=== PATIENT | male | born 1960 | race Caucasian/White ===

== ENCOUNTER → 2023-09-18 08:51 | Outpatient (REF) | payer BC, SELFPAY | LOC: HWRCS 08:51 | PROVIDERS: ATTENDING PHYSICIAN Family Medicine | DX: R53.82 Chronic fatigue, unspecified (principal); H83.02 Labyrinthitis, left ear; R01.1 Cardiac murmur, unspecified; E53.8 Deficiency of other specified B group vitamins | CPT/HCPCS: 93306 ==

== ENCOUNTER 2024-01-09 16:44 | Emergency (ER) | payer BC, SELFPAY ==
[2024-01-09 16:45] VITALS: BMI 27.8
[2024-01-09 16:46] VITALS: BP 166/83
[2024-01-09 17:42] LABS: % Basophils 1.1 % (0-2); % Eosinophils 2.8 % (0-6); % Immature Granulocytes 0.3 % (0-0.5); % Lymphocytes 21.2 % (20.5-51.1); % Monocytes 9.2 % (1.7-9.3); % Neutrophils 65.4 % (42.2-75.2); Absolute Basophils 0.1 10^3/uL (0-0.2); Absolute Eosinophils 0.2 10^3/uL (0-0.7); Absolute Lymphocytes 1.7 10^3/uL (1.2-3.4); Absolute Monocytes 0.7 10^3/uL (0.1-0.6); Absolute Neutrophils 5.1 10^3/uL (1.4-6.5); Hematocrit 41.4 % (39.0-52.0); Hemoglobin 14.3 g/dL (13.0-18.0); Mean Corp Hgb Conc. 34.5 g/dL (33.0-37.0); Mean Corpuscular Hgb 29.4 pg (27.0-31.0); Mean Platelet Volume 10.3 fL (7.4-10.4); Nucleated Red Blood Cells % 0 % (-); Platelet Count 213 10^3/uL (130-400); Red Blood Cell Count 4.87 10^6/uL (4.70-6.10); Red Cell Dist. Width 13.1 % (11.5-14.5); White Blood Cell Count 7.9 10^3/uL (4.8-10.8)
--- NOTE | 2024-01-09 17:42 | ED.GENMED ---
History of Present Illness
General
Chief Complaint: Flank Pain
Source: patient and family (Daughter)
Exam Limitations: none
Time Seen by Provider: 01/09/24 17:05
Nursing documentation reviewed up to this point in time: agreed with
Travel History
Have you had any contact with someone who has COVID-19?: No
Do you have any symptoms of coronavirus? Fever > 100 degrees, chills, cough, shortness of breath, sore throat, loss of taste or smell, muscle aches, or headache?: No
History of Present Illness
History of Present Illness:
63-year-old male with a past medical history of BPH and diverticulitis status post partial colon resection who presents to the emergency room with his daughter for evaluation of right abdominal/flank pain and hematuria. Patient reports that for the
past 3 days he has had some dark urine/blood in his urine. He says that today he had rather abrupt onset of right mid abdominal pain radiating to the right flank. He says that this was very intense and woke him up from a nap. He says that it
lasted for about 25 minutes and then seem to go away and so he went about his normal activities thereafter. He says within 30 minutes he had return of severe pain and so his daughter urged him to go to the emergency room. He says that his pain has
abated for now he is currently only having some very mild aching in the right abdomen/flank. He did not have any associated nausea or vomiting. Has not had any change in his bowel movements�denies diarrhea or constipation. Although he has had
some hematuria he denies any dysuria or change in frequency and he has not had any difficulty urinating. He says he has not had any fevers or chills. He denies similar symptoms in the past. Only surgical history is a partial colon resection
secondary to diverticulitis in 2011.
Past History
Past History
ED Past Medical History: Other (BPH); Negative Asthma, HTN, Hypercholesterolemia or NIDDM
ED Past Surgical History: Bowel resection (For diverticulitis) and Orthopedic (Joint replaced Left great toe)
Social History
Tobacco: Non-smoker
Alcohol: None
Personal:
Living: with family
Review of Systems
Review of Systems
All Other Systems: ROS reviewed and negative except as documented in HPI and ROS
Constitutional: Denies fever or chills
Respiratory: Denies cough or trouble breathing
Cardiac: Denies chest pain or palpitations
ABD/GI: Reports abdominal pain; Denies nausea, vomiting, diarrhea or constipated
: Reports flank pain, bleeding and dark urine; Denies dysuria or frequency
Musculoskeletal: Denies neck pain or back pain
Neurological: Denies dizzy or headache
Phy Exam
Physical Exam
Physical Exam:
General: Awake, alert, oriented x3; no acute distress
Head: Normocephalic, atraumatic
Eyes: Conjunctiva normal, sclera anicteric
Throat: Airway intact, handling secretions, moist mucous membranes
Neck: Trachea midline, supple without meningismus
Lungs: Breathing comfortably no distress
Heart: Regular rate, extremities warm well-perfused with brisk capillary refill
Abd: Soft, non distended, mildly tender in the right mid abdomen with no peritoneal signs or masses
Back: No CVA tenderness
Neuro: No gross deficits
Skin: no rash
Extremities: Atraumatic, no edema
Scores
Heart Failure Risk
Heart Failure Risk Score: Not Applicable
Heart Score for Chest Pain Patients
STEMI patient?: Not applicable
Withdrawal Assessment of Alcohol
Withdrawal Assessment Completed?: Not applicable
Course
Orders/Labs/Results
Orders:
Orders
01/09/24 17:25
CT Abd/pel Without Iv Or Oral Urgent
Comment:
Reason For Exam: R flank pain
01/09/24 17:33
Complete Blood Count/With Diff Urgent
Comprehensive Metabolic Panel Urgent
Urinalysis Reflex To Culture Urgent
Date Specimen was Collected: 01/09/24
Time Specimen was Collected: 17:28
Urine Microscopic Reflex Cult Urgent
Urine Culture Urgent
TASHA Source: U
Specimen Description:
Date Specimen was Collected: 01/09/24
Time Specimen was Collected: 17:28
01/09/24 17:47
0.9% Sodium Chloride 500 ml [Nss] 500 ml IV BOLUS
Abnormal Lab Results
01/09/24
17:33
Absolute Monos (auto) 0.7 H 10^3/uL
(0.1-0.6)
Chloride 109 H mmol/L
(98-107)
Urine Ketones Trace A
(Negative)
Ur Occult Blood Reflex 4+ A
(Negative)
Urine Bilirubin 1+ A
(Negative)
Leukocyte Esterase Rfl Trace A
(Negative)
Urine RBC >100 A /HPF
(0-2)
Urine Bacteria (Reflex) Many A
(Negative)
Urine Albumin (Reflex) 1+ A
(Neg - Trace)
01/09/24 17:33
01/09/24 17:33
Vital Signs
Initial and Last Documented VS:
Initial Vital Signs
Temp Pulse Resp BP Pulse Ox
36.7 C 68 18 166/83 96
01/09/24 16:46 01/09/24 16:46 01/09/24 16:46 01/09/24 16:46 01/09/24 16:46
Last Documented Vital Signs
Temp Pulse Resp BP Pulse Ox
36.7 C 71 16 141/81 97
01/09/24 16:46 01/09/24 20:24 01/09/24 20:24 01/09/24 20:24 01/09/24 20:24
MDM/Problems Addressed
Differential Diagnosis Includes:
Nephrolithiasis, diverticulitis, appendicitis, UTI/pyelonephritis, hepatobiliary disease
MDM/Problems Addressed:
63-year-old male presents to the emergency room for evaluation of hematuria for the past few days now having acute onset waxing and waning severe right abdominal/flank pain. Hypertensive but otherwise normal vitals. Physical exam as above. Place
an IV check labs including a CBC and a CMP. Will check urinalysis. Will send for CT abdomen pelvis. Will provide some gentle fluids and pain control as needed. Reassess after the above.
Labs reviewed: CBC unremarkable, CMP shows no clinically significant abnormalities�notably normal creatinine. CT shows 6 mm obstructive stone with mild hydronephrosis on the right. His urinalysis is positive for blood and there are some bacteria
in the urine but no pyuria to suggest infection and he has no leukocytosis or fever to suggest infection. He has no pain at time my reassessment. I think he is a reasonable candidate for discharge for trial of passage. Will start on Flomax,
advised to take Tylenol Motrin will prescribe oxycodone for breakthrough pain. I did provide referral to urology. Provided strainer. I spoke to the patient at length about management and return precautions and he felt very comfortable with this
plan. All questions answered.
Acute Exacerbation and/or Progression of Chronic Illness:
Acutely hypertensive
Acute Exacerbation and/or Progression of Chronic Illness: HTN
*Radiology
Radiology exam reviewed: radiology read reviewed
*Pulse Oximetry
Patient hypoxic: no
*Critical Care Note
Total Time (30-74mins, 75-104mins- exclusive of procedures): Not Applicable
Data Reviewed
Review of Other/Old Records Reveals: Labs and Records
Source: patient and family (Daughter)
ED Attending Note
-
Portions of this chart may have been created with voice recognition software.� Occasional wrong word or��sound alike� substitutions may have occurred due to the inherent limitations of voice recognition software.
Discharge Plan
Departure
Patient Disposition: Home (Routine Discharge)
Date of Disposition: 01/09/24
Time of Disposition: 20:07
Patient with high blood pressure during this ER visit?: Yes
Discharge Problem:
Right nephrolithiasis
Instructions: Kidney Stones (DC)
Prescriptions:
New
oxycodone 5 mg tablet
5 mg PO Q6H PRN (Reason: Pain) Qty: 14 0RF
tamsulosin [Flomax] 0.4 mg capsule
0.4 mg PO DAILY Qty: 14 0RF
ondansetron 4 mg tablet,disintegrating
4 mg PO TIDPRN PRN (Reason: nausea/vomiting) Qty: 20 0RF
No Action
cyanocobalamin (vitamin B-12) 1,000 mcg Tablet
1,000 mcg PO DAILY Qty: 30 0RF
acetaminophen [Tylenol Extra Strength] 500 mg Tablet
1,000 mg PO DAILYPRN PRN (Reason: mild pain)
magnesium oxide 400 mg (241.3 mg magnesium) Tablet
400 mg PO DAILY
escitalopram oxalate 20 mg Tablet
20 mg PO DAILY
topiramate 50 mg Tablet
25 mg PO HS
Visbiome 112.5 billion cell Capsule
1 cap PO DAILY
riboflavin (vitamin B2) 400 mg Tablet
400 mg PO DAILY
Referrals:
Ebenezer Bill MD [Family Provider] -
Tunde Miller Jr., MD [Active] - Call in 1-3 days for appt (Urology)
Activity Restrictions/Additional Instructions:
You were seen in the emergency room for flank pain and was found to have a kidney stone. You should take Flomax once daily until you passed the stone to help facilitate passage. You should drink plenty of fluids. You should take Tylenol and
Motrin every 6 hours for pain control and if you have pain that breaks through these medications you can take the oxycodone as prescribed. If you have severe pain refractory to these measures you should return to the emergency room. You should
call the urologist first thing tomorrow to schedule follow-up with soon as possible after your visit to the emergency room. If you are having persistent symptoms they can guide you through procedures to remove the stone. If you develop any fevers
or chills or any signs of infection please immediately return to the emergency room.
Thank you for visiting the Emergency Department at [facility].
1. Please schedule a follow up appointment as directed. Call first thing tomorrow morning to make an appointment.
2. If indicated, please take your medications as instructed and indicated on discharge paperwork.
3. If any of your symptoms do not improve, or persist, or become more severe within 6-12 hours, please return to the emergency department for further care.
4. Please return to the emergency department if you develop a headache, neck pain/stiffness, fever greater than 100.4F, chest pain, shortness of breath, persistent nausea, vomiting, slurred speech, difficulty walking, numbness/tingling, weakness,
signs of infection or any other symptoms that are worrisome to you.
Please call [phone] if you have any questions.
Interventions
Interventions:
*Risk Screen - Suicide Last Done: 01/09/24 20:26
*General Assessment Last Done: 01/09/24 20:26
*Neglect/Abuse Screening Last Done: 01/09/24 20:26
ED- Fall Risk Assessment Last Done: 01/09/24 18:53
*ED COVID-19 Vaccine History Last Done: 01/09/24 20:26
*Nursing Disposition Last Done: 01/09/24 20:26
MU-Sdutav-Lnceksfnoo Assessment Last Done: 01/09/24 18:53
ED-Male Genitourinary Assessment Last Done: 01/09/24 18:53
Discharge Date and Time
Discharge Date/Time: 01/09/24 20:26
Print Language: MONEGASQUE
[2024-01-09 17:44] LABS: Urine Albumin 1+ (Neg - Trace); Urine Bilirubin 1+ (Negative); Urine Character Very Cloudy (Clear); Urine Color Amber; Urine Glucose Negative (Negative); Urine Ketone Trace (Negative); Urine Leukocyte Trace (Negative); Urine Nitrite Negative (Negative); Urine Occult Blood 4+ (Negative); Urine Urobilinogen Negative (Neg - 1+)
[2024-01-09 18:02] LABS: ALT (SGPT) 20 U/L (0-50); AST (SGOT) 21 U/L (17-59); Albumin 4.3 g/dl (3.5-5.0); Alkaline Phosphatase 62 U/L (38-126); Blood Urea Nitrogen 19 mg/dl (9-20); Calcium 9.3 mg/dl (8.4-10.2); Carbon Dioxide 25 mmol/L (22-30); Chloride 109 mmol/L (98-107); Glucose 99 mg/dl (70-99); Potassium 3.8 mmol/L (3.5-5.1); Sodium 140 mmol/L (135-145); Total Bilirubin 0.9 mg/dl (0.2-1.3); Total Protein 6.7 g/dl (6.3-8.2); eGFR > 60.00
[2024-01-09] MEDS: NSS 500 IV (18:04)
[2024-01-09 18:12] LABS: Urine Bacteria Many (Negative); Urine Red Blood Cell >100 /HPF (0-2); Urine White Cell 0-2 /HPF (0-5)
[2024-01-09 20:24] VITALS: BP 141/81
== END 2024-01-09 20:26 | disposition home or self-care (01) ==
LOC: EMR 16:44
PROVIDERS: EMERGENCY PHYSICIAN Emergency Medicine; FAMILY PHYSICIAN Family Medicine
DX: N13.2 Hydronephrosis with renal and ureteral calculous obstruction (principal); N40.0 Benign prostatic hyperplasia without lower urinary tract symptoms; K57.92 Diverticulitis of intestine, part unspecified, without perforation or abscess without bleeding; Z98.0 Intestinal bypass and anastomosis status
CPT/HCPCS: 99284; 74176; 80053; 81003; 81015; 85025; 87086

== ENCOUNTER 2024-02-11 20:30 | Emergency (ER) | payer BC, SELFPAY ==
[2024-02-11 20:30] VITALS: BMI 28.5
[2024-02-11 20:31] VITALS: BP 168/108
[2024-02-11 20:56] LABS: % Basophils 0.9 % (0-2); % Eosinophils 4.2 % (0-6); % Immature Granulocytes 0.3 % (0-0.5); % Lymphocytes 32.2 % (20.5-51.1); % Monocytes 8.1 % (1.7-9.3); % Neutrophils 54.3 % (42.2-75.2); Absolute Basophils 0.1 10^3/uL (0-0.2); Absolute Eosinophils 0.3 10^3/uL (0-0.7); Absolute Lymphocytes 2.5 10^3/uL (1.2-3.4); Absolute Monocytes 0.6 10^3/uL (0.1-0.6); Absolute Neutrophils 4.2 10^3/uL (1.4-6.5); Hematocrit 41.1 % (39.0-52.0); Hemoglobin 14.4 g/dL (13.0-18.0); Mean Corpuscular Hgb 29.6 pg (27.0-31.0); Mean Corpuscular Volume 84.6 fL (80.0-94.0); Mean Platelet Volume 10.4 fL (7.4-10.4); Nucleated Red Blood Cells % 0 % (-); Platelet Count 247 10^3/uL (130-400); Red Blood Cell Count 4.86 10^6/uL (4.70-6.10); White Blood Cell Count 7.7 10^3/uL (4.8-10.8)
--- NOTE | 2024-02-11 20:56 | ED.GENMED ---
History of Present Illness
General
Chief Complaint: Flank Pain
Source: patient, spouse and family
Exam Limitations: none
Time Seen by Provider: 02/11/24 20:49
Nursing documentation reviewed up to this point in time: agreed with
History of Present Illness
History of Present Illness:
63 yo male w h/o kidney stones, has a known 6 mm R ureteral stone seen on CT in December, followed by Dr. Miller, Urology, wanted to give it 2 weeks to pass, didn't pass, saw Dr. Miller [address] ordered for this coming (2 days) but
pain became worse so came here. Is nauseated, pain 05/07. Denies fever/chills.
Past History
Past History
ED Past Medical History: Other (BPH, kidney stones); Negative Asthma, HTN, Hypercholesterolemia or NIDDM
ED Past Surgical History: Bowel resection (For diverticulitis), Orthopedic (Joint replaced Left great toe) and Urological (prostate surgery)
Social History
Tobacco: Non-smoker
Alcohol: None
Personal:
Living: with family
Review of Systems
Review of Systems
Allergies reviewed?: Yes
All Other Systems: ROS reviewed and negative except as documented in HPI and ROS
Constitutional: Denies fever or chills
Respiratory: Denies trouble breathing
Cardiac: Denies chest pain
ABD/GI: Reports nausea; Denies vomiting
: Reports flank pain (right) and difficulty voiding (states he only voided once today. ); Denies dysuria
Musculoskeletal: Reports no symptoms
Skin: Reports no symptoms
Neurological: Reports no symptoms
Phy Exam
Physical Exam
Physical Exam:
GENERAL: Moderate acute distress due to flank pain. A&Ox3.
CONSTITUTIONAL: Afebrile.
EYES: clear, conjunctivae normal
ENMT: moist mucus membranes, Pharynx nl
RESPIRATORY: Regular respirations, nonlabored, lungs clear.
CARDIOVASCULAR: Regular rate and rhythm, no murmurs, no rubs.
GI: Soft, nontender, normal BS, right flank and side tenderness
MUSCULOSKELETAL: Moves with ease. Well perfused.
SKIN: Warm, dry, pink
PSYCH: Anxioud mood and affect. Well kept, interactive and appropriate
NEUROLOGIC: Awake, alert and oriented. No focal neurological deficits
Course
Orders/Labs/Results
Orders:
Orders
02/11/24 20:50
IV Insert/Care/Rem.- Treatment PRN
02/11/24 20:52
Complete Blood Count/With Diff Urgent
Comprehensive Metabolic Panel Urgent
Urinalysis Reflex To Culture Urgent
Date Specimen was Collected: 02/11/24
Time Specimen was Collected: 20:50
Urine Microscopic Reflex Cult Urgent
02/11/24 20:53
HYDROmorphone [Dilaudid] 1 mg IV NOW STA
Ondansetron Injectable [Zofran] 4 mg IV NOW STA
02/11/24 20:54
Electrocardiogram (*1) Urgent
Reason for Study: QTc Monitoring
EKG- Treatment ONCE
02/11/24 20:55
CT Abd/pel Without Iv Or Oral Urgent
Comment:
Reason For Exam: known R ureteral stone, pain now
02/11/24 20:59
Ketorolac [Toradol] 15 mg IV NOW STA
02/11/24 22:48
Ketorolac [Toradol] 15 mg IV NOW STA
Abnormal Lab Results
02/11/24
20:52
BUN 21 H mg/dl
(9-20)
Creatinine 1.5 H mg/dL
(0.7-1.3)
Glucose 100 H mg/dl
(70-99)
Ur Occult Blood Reflex 4+ A
(Negative)
Urine RBC 30-40 A /HPF
(0-2)
Urine Bacteria (Reflex) Few A
(Negative)
02/11/24 20:52
02/11/24 20:52
Vital Signs
Initial and Last Documented VS:
Initial Vital Signs
Temp Pulse Resp BP Pulse Ox
98.7 F 70 26 168/108 98
02/11/24 20:31 02/11/24 20:31 02/11/24 20:31 02/11/24 20:31 02/11/24 20:31
Last Documented Vital Signs
Temp Pulse Resp BP Pulse Ox
98.7 F 71 20 131/71 98
02/11/24 20:31 02/11/24 22:59 02/11/24 22:59 02/11/24 22:59 02/11/24 22:59
MDM/Problems Addressed
Differential Diagnosis Includes:
Ureteral stone, UTI
MDM/Problems Addressed:
63 yo male w h/o kidney stones, has a known 6 mm R ureteral stone seen on CT in December, followed by Dr. Miller, Urology, wanted to give it 2 weeks to pass, didn't pass, saw Dr. Miller [address] ordered for this coming (2 days) but
pain became worse so came here. Is nauseated, pain 10/10. Denies fever/chills.
Afebrile
Uncomfortable with 10/[address] Tillman in to see pt. Daughter at bedside used to work as RN here.
Requests no Dilaudid as 'he vomited all the way home' after previous use for fx ribs.
Requests Toradol
10:26 PM:
CBC unremarkable
CMP: Creat 1.5 otherwise normal.
CAT scan abdomen pelvis radiology report reviewed: IMPRESSION:
Persistent 6 mm proximal right ureteral calculus. Slightly increased mild hydroureteronephrosis and perinephric soft tissue stranding.
Consulted Urology Dr. Reed who offered to admit pt, but probably won't be operated until or Saturday.
Pt and family informed, pt choses to go home, will return if worse. Will call Dr. Miller tomorrow.
Pt is pain free after IV Toradol
Afebrile, no sign of pyelonephritis, sepsis, no indication for antibiotics at this time.
Pt and family are comfortable going home, will return if worse
*EKG
EKG Intrepretation Date: 02/11/24
Interpretation: abnormal
Heart Rate: 64
Rate: normal
Rhythm: sinus
[place]: left axis deviation
Interval: normal interval
QRS Pattern: wide non-specific
Ischemia: no ischemia
*Critical Care Note
Total Time (30-74mins, 75-104mins- exclusive of procedures): Not Applicable
ED Attending Note
-
Portions of this chart may have been created with voice recognition software.� Occasional wrong word or��sound alike� substitutions may have occurred due to the inherent limitations of voice recognition software.
Discharge Plan
Departure
Patient Disposition: Home (Routine Discharge)
Date of Disposition: 02/11/24
Time of Disposition: 22:47
Patient with high blood pressure during this ER visit?: No
Condition: Good
Discharge Problem:
Calculus of right ureter
Instructions: Kidney Stones (DC)
Prescriptions:
No Action
cyanocobalamin (vitamin B-12) 1,000 mcg Tablet
1,000 mcg PO DAILY Qty: 30 0RF
acetaminophen [Tylenol Extra Strength] 500 mg Tablet
1,000 mg PO DAILYPRN PRN (Reason: mild pain)
magnesium oxide 400 mg (241.3 mg magnesium) Tablet
400 mg PO DAILY
escitalopram oxalate 20 mg Tablet
20 mg PO DAILY
topiramate 50 mg Tablet
25 mg PO HS
Visbiome 112.5 billion cell Capsule
1 cap PO DAILY
riboflavin (vitamin B2) 400 mg Tablet
400 mg PO DAILY
oxycodone 5 mg tablet
5 mg PO Q6H PRN (Reason: Pain) Qty: 14 0RF
tamsulosin [Flomax] 0.4 mg capsule
0.4 mg PO DAILY Qty: 14 0RF
ondansetron 4 mg tablet,disintegrating
4 mg PO TIDPRN PRN (Reason: nausea/vomiting) Qty: 20 0RF
Referrals:
Ebenezer Bill MD [Family Provider] -
Tunde Miller Jr., MD [Active] - Tomorrow
Activity Restrictions/Additional Instructions:
As we discussed, you may take another dose of Ibuprofen 600 mg at 5 a.m. if needed
Call Dr. Miller tomorrow at 8-[address] Reed will also inform him of today's visit.
Return here IMMEDIATELY for worse pain, fever/chills or feeling sicker in any way
Interventions
Interventions:
*Risk Screen - Suicide Last Done: 02/11/24 20:31
*General Assessment Last Done: 02/11/24 22:59
*Neglect/Abuse Screening Last Done: 02/11/24 20:31
ED- Fall Risk Assessment Last Done: 02/11/24 21:16
*ED COVID-19 Vaccine History Last Done: 02/11/24 22:59
*Nursing Disposition Last Done: 02/11/24 22:59
UD-Vsynna-Ckjrhnkxeh Assessment Last Done: 02/11/24 21:16
ED-Male Genitourinary Assessment Last Done: 02/11/24 21:16
Discharge Date and Time
Discharge Date/Time: 02/11/24 23:06
Print Language: BELARUSIAN
[2024-02-11] MEDS: TORADOL 15 MG IV ×2 (21:02→22:53)
[2024-02-11] MEDS: ZOFRAN 4 MG IV (21:03)
[2024-02-11 21:21] LABS: ALT (SGPT) 20 U/L (0-50); AST (SGOT) 23 U/L (17-59); Albumin 4.6 g/dl (3.5-5.0); Alkaline Phosphatase 62 U/L (38-126); Blood Urea Nitrogen 21 mg/dl (9-20); Calcium 10.1 mg/dl (8.4-10.2); Carbon Dioxide 26 mmol/L (22-30); Chloride 105 mmol/L (98-107); Estimated Creatinine Clearance 53 ml/min; Glucose 100 mg/dl (70-99); Potassium 4.3 mmol/L (3.5-5.1); Sodium 140 mmol/L (135-145); Total Bilirubin 0.7 mg/dl (0.2-1.3); Total Protein 6.9 g/dl (6.3-8.2); eGFR 52.31
[2024-02-11 22:00] VITALS: BP 142/71
[2024-02-11 22:02] LABS: Urine Albumin Trace (Neg - Trace); Urine Bilirubin Negative (Negative); Urine Character Clear (Clear); Urine Color Yellow; Urine Glucose Negative (Negative); Urine Ketone Negative (Negative); Urine Leukocyte Negative (Negative); Urine Nitrite Negative (Negative); Urine Occult Blood 4+ (Negative); Urine Specific Gravity 1.015 (<1.030); Urine Urobilinogen Negative (Neg - 1+); Urine pH 6.5 (5.0-9.0)
[2024-02-11 22:12] LABS: Urine Red Blood Cell 30-40 /HPF (0-2); Urine White Cell 0-2 /HPF (0-5)
[2024-02-11 22:13] LABS: Urine Bacteria Few (Negative)
[2024-02-11 22:59] VITALS: BP 131/71
== END 2024-02-11 23:06 | disposition home or self-care (01) ==
LOC: EMR 20:30
PROVIDERS: EMERGENCY PHYSICIAN Student in an Organized Health Care Education/Training Program; FAMILY PHYSICIAN Family Medicine
DX: N13.2 Hydronephrosis with renal and ureteral calculous obstruction (principal); R10.9 Unspecified abdominal pain; R11.0 Nausea; Z87.442 Personal history of urinary calculi
CPT/HCPCS: 99285; 96374; 96375; 96376; 51798; 74176; 80053; 81003; 81015; 85025; 93005

== ENCOUNTER 2024-02-12 11:00 | Observation (INO) | payer BC, SELFPAY ==
[2024-02-12] VITALS (16 sets, daily range): BP systolic 117–169; BP diastolic 56–85; BMI 28.8; BMI 28.1
[2024-02-12] MEDS: NSS 500 IV (06:12)
[2024-02-12] MEDS: ZOFRAN 4 MG IV ×2 (06:13→11:20)
[2024-02-12] MEDS: TORADOL 15 MG IV ×2 (06:14→11:53)
[2024-02-12 06:44] LABS: % Basophils 0.6 % (0-2); % Eosinophils 2.5 % (0-6); % Immature Granulocytes 0.5 % (0-0.5); % Lymphocytes 13.9 % (20.5-51.1); % Monocytes 10.3 % (1.7-9.3); % Neutrophils 72.2 % (42.2-75.2); Absolute Basophils 0.1 10^3/uL (0-0.2); Absolute Eosinophils 0.2 10^3/uL (0-0.7); Absolute Immature Granulocytes 0.1 10^3/uL (0-0.05); Absolute Lymphocytes 1.3 10^3/uL (1.2-3.4); Hematocrit 40.4 % (39.0-52.0); Hemoglobin 13.8 g/dL (13.0-18.0); Mean Corp Hgb Conc. 34.2 g/dL (33.0-37.0); Mean Corpuscular Hgb 29.1 pg (27.0-31.0); Mean Corpuscular Volume 85.1 fL (80.0-94.0); Mean Platelet Volume 10.5 fL (7.4-10.4); Nucleated Red Blood Cells % 0 % (-); Platelet Count 190 10^3/uL (130-400); Red Blood Cell Count 4.75 10^6/uL (4.70-6.10); White Blood Cell Count 9.6 10^3/uL (4.8-10.8)
[2024-02-12 06:45] LABS: Blood Urea Nitrogen 23 mg/dl (9-20); Calcium 9.6 mg/dl (8.4-10.2); Carbon Dioxide 24 mmol/L (22-30); Chloride 108 mmol/L (98-107); Estimated Creatinine Clearance 44 ml/min; Glucose 101 mg/dl (70-99); Potassium 3.9 mmol/L (3.5-5.1); Sodium 140 mmol/L (135-145); eGFR 42.03
--- NOTE | 2024-02-12 07:06 | ED.GENMED ---
History of Present Illness
General
Chief Complaint: Flank Pain
Source: patient
Exam Limitations: none
Time Seen by Provider: 02/12/24 05:59
Nursing documentation reviewed up to this point in time: agreed with
History of Present Illness
History of Present Illness:
Patient diagnosed with obstructing renal stone in December 2023, presents to ED secondary to worsening pain upon waking up this morning. Patient was seen in ED last night with similar pain, during which time he received CT scan, which unfortunately
confirmed ongoing obstructing renal stone 6 mm in size. Patient was treated symptomatically ED and discharged home when pain got worse this morning, with multiple vomiting episodes. Denies fever or chills. Denies trauma. Denies difficulty with
urination.
Past History
Past History
ED Past Medical History: Other (BPH, kidney stones); Negative Asthma, HTN, Hypercholesterolemia or NIDDM
ED Past Surgical History: Bowel resection (For diverticulitis), Orthopedic (Joint replaced Left great toe) and Urological (prostate surgery)
Social History
Tobacco: Non-smoker
Alcohol: None
Personal:
Living: with family
Review of Systems
Review of Systems
Allergies reviewed?: Yes
All Other Systems: ROS reviewed and negative except as documented in HPI and ROS
Constitutional: Reports no symptoms; Denies fever
ABD/GI: Reports nausea and vomiting; Denies abdominal pain
: Reports flank pain
Musculoskeletal: Reports no symptoms
Skin: Reports no symptoms
Neurological: Reports no symptoms
Phy Exam
Physical Exam
Physical Exam:
Physical Exam
General: mild painful distress, not acutely ill. afebrile
Head: nc/at. eomi
Neck: supple. no meningeal signs.
Abdomen: normal bowel sounds. not tender.
Neuro: alert and oriented. no focal neurological deficits
Skin: no rash
Psychiatric: well kept. interactive and cooperative
Extremities: no edema. no calf tenderness.
Course
Orders/Labs/Results
Orders:
Orders
02/12/24 Breakfast
NPO
Allow oral meds: No
Allow clear liquids: Sips of Clears
NPO with Ice Chips: Yes
NPO for procedure after (time): stop at noon
02/12/24 06:03
0.9% Sodium Chloride 500 ml [Nss] 500 ml IV BOLUS
Ketorolac [Toradol] 15 mg IV NOW STA
Ondansetron Injectable [Zofran] 4 mg IV NOW STA
02/12/24 06:21
Basic Metabolic Panel Urgent
Complete Blood Count/With Diff Urgent
02/12/24 09:17
Code Status As Directed
Resuscitation Status: Full Code
Acetaminophen [Tylenol] 650 mg PO Q4HPRN PRN
Ondansetron Injectable [Zofran] 4 mg IV Q6HPRN PRN
Oxycodone/Acetaminophen [Percocet 5/325] 1 tablet PO Q4HPRN PRN
Oxycodone/Acetaminophen [Percocet 5/325] 2 tablet PO Q4HPRN PRN
Venous Foot Pumps As Directed
Location: Bilateral feet
02/12/24 09:18
Admit Patient As Directed
Co-Sign Provider:
Level of Care: Observation services
Assign to:: Medical/Surgical
Physician / Group: andrew
Diagnosis: suman and intractable pain from rt uretral calculus
Patient Condition: Good
Expected length of stay greater than two midnights?: No
ELOS- Estimated Length of Stay in days: 2
Reason for Overnight Stay: Require IV med-pain
Activity As Directed
Activity Level: As Tolerated
Intake/ Output As Directed
Frequency: Per unit guidelines
Okay to Shower As Directed
Strain Urine As Directed
Surgical Procedure As Directed
Surgical Procedure: rt urteroscopy and laser sytent
Vital Signs As Directed
Frequency: Per unit guidelines
DX Deep Vein Thrombosis Video Routine
02/12/24 09:30
0.9% Sodium Chloride 1000 ml [Nss] 1,000 ml IV 125 mls/hr
02/12/24 10:00
LevoFLOXacin 500 MG/100 ML [Levaquin] 500 mg in 100 ml IV Q24H
02/12/24 10:47
HYDROmorphone [Dilaudid] 0.25 mg IV PACU-Q5MPRN PRN
HYDROmorphone [Dilaudid] 0.5 mg IV PACU-Q5MPRN PRN
Ondansetron Injectable [Zofran] 4 mg IV PACU-ONCEPRN PRN
Prochlorperazine [Compazine] 5 mg IV PACU-ONCEPRN PRN
Notify MD As Directed
Notify physician if: for SDS patients with known or suspected sleep obstructive sleep apnea, monitor in the
PACU.
Notify MD for any apneic/desaturation episodes
O2 Therapy [RESP] Urgent
Titrate/Wean O2 to maintain O2 sat greater than (%): 92
Special Instructions: -Provide supplemental oxygen to achieve O2 sat of 92% or greater.
-After 15 min, may wean O2 and discontinue if patient is able to maintain O2 sat of 92%
or greater during recovery period.
If patient is a discharge home, without oxygen therapy, notify anestheiologist if
unable to maintain O2 SAT of 92% or greater on room air for MD clearance.
02/12/24 11:00
Normosol (Mult Electrolytes) [Normosol-R] 1,000 ml IV PER PROTOCOL
02/12/24 11:28
Urinalysis Reflex To Culture Urgent
Date Specimen was Collected: 02/12/24
Time Specimen was Collected: 11:27
02/12/24 22:00
Tamsulosin [Flomax] 0.4 mg PO HS
Topiramate [Topamax] 50 mg PO HS
02/13/24 06:00
Basic Metabolic Panel IN AM
Complete Blood Count/No Diff IN AM
02/13/24 08:00
Cyanocobalamin [Vitamin B-12] 1,000 mcg PO DAILY
Escitalopram Oxalate [Lexapro] 20 mg PO DAILY
Lactobac/Bifidobac [Visbiome] 1 cap PO DAILY
Magnesium Oxide 500 mg PO DAILY
Tamsulosin [Flomax] 0.4 mg PO DAILY
riboflavin (vitamin B2) See Dose Instructions PO DAILY
Abnormal Lab Results
02/12/24
06:21
MPV 10.5 H fL
(7.4-10.4)
Abs Immat Gran (auto) 0.1 H 10^3/uL
(0-0.05)
Absolute Neuts (auto) 7.0 H 10^3/uL
(1.4-6.5)
Absolute Monos (auto) 1.0 H 10^3/uL
(0.1-0.6)
Lymphocytes % 13.9 L %
(20.5-51.1)
Monocytes % 10.3 H %
(1.7-9.3)
Chloride 108 H mmol/L
(98-107)
BUN 23 H mg/dl
(9-20)
Creatinine 1.8 H mg/dL
(0.7-1.3)
Glucose 101 H mg/dl
(70-99)
02/12/24 06:21
02/12/24 06:21
Vital Signs
Initial and Last Documented VS:
Initial Vital Signs
Temp Pulse Resp BP Pulse Ox
98.7 F 58 16 158/83 97
02/12/24 05:31 02/12/24 05:31 02/12/24 05:31 02/12/24 05:31 02/12/24 05:31
Last Documented Vital Signs
Temp Pulse Resp BP Pulse Ox
98.4 F 54 18 133/85 96
02/12/24 12:41 02/12/24 12:41 02/12/24 12:41 02/12/24 12:41 02/12/24 12:41
MDM/Problems Addressed
MDM/Problems Addressed:
Discussed with Dr. Reed, on-call urology, who will admit patient for further evaluation and treatment
*Critical Care Note
Total Time (30-74mins, 75-104mins- exclusive of procedures): Not Applicable
ED Attending Note
-
Portions of this chart may have been created with voice recognition software.� Occasional wrong word or��sound alike� substitutions may have occurred due to the inherent limitations of voice recognition software.
Discharge Plan
Departure
Patient Disposition: Admit
Date of Disposition: 02/12/24
Time of Disposition: 07:08
Admit to: Med/Surg
Admit to doctor: andrew
Presentation/result/management discussed w/ accepting MD/DO:
Discharge Problem:
Renal colic, intractable pain
Interventions
Interventions:
*Risk Screen - Suicide Last Done: 02/12/24 05:31
*General Assessment Last Done: 02/12/24 05:31
*Neglect/Abuse Screening Last Done: 02/12/24 05:31
ED- Fall Risk Assessment Last Done: 02/12/24 05:31
*ED COVID-19 Vaccine History Last Done: 02/12/24 05:31
*Nursing Disposition Last Done: 02/12/24 12:22
PV-Fbdqzm-Yfbuzygpwy Assessment Last Done: 02/12/24 05:41
ED-Male Genitourinary Assessment Last Done: 02/12/24 05:41
Discharge Date and Time
Discharge Date/Time: 02/12/24 12:23
--- NOTE | 2024-02-12 09:15 | W.PN.URO.CBU ---
Today's Communication / Plan
-
to op roomnpo ivabs written
Assessment / Plan
-
suman with intractavle pain from stone unchanged in position for month prox rt ureter
Diagnosis
-
Date of Service: February 12, 2024
-
Patient Diagnosis:
rt oretral 6 mm stone inracatable pain ans suman
Post Op Day:
Patient Diagnosis:
Post Op Day:
Subjective
-
rt colic naisea
Objective
-
Vital Signs
Temp Pulse Resp BP Pulse Ox
98.7 F 58 18 141/70 98
02/12/24 05:31 02/12/24 08:00 02/12/24 08:00 02/12/24 08:00 02/12/24 08:00
Laboratory Results
02/12/24 06:21
02/12/24 06:21
Review of Systems
-
Constitutional: No Symptoms
Abdomen/GI: Abdominal Pain, Nausea and Vomiting
: Flank Pain
Physical Exam
-
General - well developed, well nourished, no acute distress
Chest - clear bilaterally
Abdomen - soft, non-tender, positive bowel sounds, no CVAT, no incisional pain or distention
Genitalia - normal
Rectal - normal
Skin - warm & dry with no rash
Neuro - AOx3, no motor deficits
Extremities - no clubbing, no cyanosis, no edema
Incision - clean, dry
Dressing - clean, dry, intact
Care Review
Data Reviewed
Discussed with: Nursing and Family
CT Scan: Image Pers Reviewed
[2024-02-12] MEDS: PERCOCET 5/325 2 TABLET PO ×3 (11:23→21:25)
[2024-02-12] MEDS: NSS 1000 IV ×2 (11:24→16:54)
[2024-02-12] MEDS: LEVAQUIN 100 IV (11:24)
--- NOTE | 2024-02-12 11:35 | EDRN ---
Covered assignment: IV fluids and meds as documented on SEP. Report tubed 436-2.
[2024-02-12 12:12] LABS: Urine Albumin Negative (Neg - Trace); Urine Bilirubin Negative (Negative); Urine Character Clear (Clear); Urine Color Yellow; Urine Glucose Negative (Negative); Urine Ketone Negative (Negative); Urine Leukocyte Negative (Negative); Urine Nitrite Negative (Negative); Urine Occult Blood 2+ (Negative); Urine Specific Gravity 1.015 (<1.030); Urine Urobilinogen Negative (Neg - 1+); Urine pH 6.5 (5.0-9.0)
[2024-02-12 14:38] LABS: Urine Mucus Few
[2024-02-12 14:39] LABS: Urine Amorphous Seen; Urine Granular Cast 0-2 /LPF (0); Urine Hyaline Cast 0-2 /LPF (0-2)
[2024-02-12 14:41] LABS: Urine White Cell 0-2 /HPF (0-5)
--- NOTE | 2024-02-12 15:31 | W.PN.UPDATE ---
Update Note
Progress Note Update
surgery completed -- OP note dictated
, Jennie, apprised
[2024-02-12] MEDS: Pyridium 200 MG PO (15:54)
[2024-02-12] MEDS: TOPAMAX 50 MG PO (21:19)
[2024-02-12] MEDS: FLOMAX 0.4 MG PO (21:19)
[2024-02-13 03:33] VITALS: BP 105/47
[2024-02-13] MEDS: PERCOCET 5/325 2 TABLET PO (04:03)
[2024-02-13] MEDS: NSS 1000 IV (04:55)
[2024-02-13 06:00] VITALS: BMI 28.7
[2024-02-13 07:00] VITALS: BP 137/64
[2024-02-13 07:24] LABS: Hemoglobin 13.5 g/dL (13.0-18.0); Mean Corp Hgb Conc. 34.6 g/dL (33.0-37.0); Mean Corpuscular Hgb 29.5 pg (27.0-31.0); Mean Corpuscular Volume 85.3 fL (80.0-94.0); Mean Platelet Volume 10.7 fL (7.4-10.4); Platelet Count 203 10^3/uL (130-400); Red Blood Cell Count 4.57 10^6/uL (4.70-6.10); Red Cell Dist. Width 12.9 % (11.5-14.5); White Blood Cell Count 10.3 10^3/uL (4.8-10.8)
[2024-02-13 07:55] LABS: Blood Urea Nitrogen 24 mg/dl (9-20); Calcium 9.3 mg/dl (8.4-10.2); Carbon Dioxide 23 mmol/L (22-30); Chloride 107 mmol/L (98-107); Estimated Creatinine Clearance 61 ml/min; Glucose 180 mg/dl (70-99); Potassium 4.5 mmol/L (3.5-5.1); Sodium 138 mmol/L (135-145); eGFR > 60.00
[2024-02-13] MEDS: MAGNESIUM OXIDE 500 MG PO (08:27)
[2024-02-13] MEDS: FLOMAX 0.4 MG PO (08:27)
[2024-02-13] MEDS: LEXAPRO 20 MG PO (08:27)
[2024-02-13] MEDS: PERCOCET 5/325 1 TABLET PO (08:27)
[2024-02-13] MEDS: VITAMIN B-12 1000 MCG PO (08:27)
[2024-02-13] MEDS: VISBIOME 1 CAP PO (08:27)
[2024-02-13] MEDS: NSS IV (08:42)
--- NOTE | 2024-02-13 09:02 | W.PN.URO.CBU ---
Today's Communication / Plan
-
discharge
Assessment / Plan
-
stable
Diagnosis
-
Date of Service: February 13, 2024
-
Patient Diagnosis:
Right ureteral stone s/p right ureteroscopy, laser lithotripsy and stenting on 02/12/2024
Subjective
-
expected stent bother
Objective
-
Vital Signs
Temp Pulse Resp BP Pulse Ox
98.2 F 63 16 137/64 95
02/13/24 07:00 02/13/24 07:00 02/13/24 07:00 02/13/24 07:00 02/13/24 07:00
Intake and Output
02/12/24 02/13/24 02/14/24
06:59 06:59 06:59
Intake Total 870 / 870
Balance 870 / 870
Intake:
Oral fluids 770 / 770
IV fluids (Total) 100 / 100
NSS 100 / 100
Other:
Number of approximated MODERATE 2
amounts of urine
Laboratory Results
02/13/24 06:50
02/13/24 06:50
Physical Exam
-
General - well developed, well nourished, no acute distress
Chest - clear bilaterally
Abdomen - soft, non-tender, positive bowel sounds, no CVAT, no incisional pain or distention
Skin - warm & dry with no rash
Neuro - AOx3, no motor deficits
Extremities - no clubbing, no cyanosis, no edema
[2024-02-13] MEDS: LEVAQUIN 100 IV (10:17)
--- NOTE | 2024-02-13 10:28 | CM ---
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 Patient lives with spouse in a 2 story home, 2 steps to enter, patient is independent with adl's and ambulation, no dme, patient drives.
Pharmacy [facility] [id number]
PCP: Dr. Bill
Plan; Home today no needs.
[2024-02-13 11:00] VITALS: BP 131/60
[2024-02-16 16:59] LABS: Stone Analysis Mass 27 mg
== END 2024-02-13 11:50 | disposition home or self-care (01) ==
LOC: 4 WEST ACU 11:00
PROVIDERS: Specialist; ADMITTING PHYSICIAN Specialist; EMERGENCY PHYSICIAN Emergency Medicine; FAMILY PHYSICIAN Family Medicine
DX: N13.2 Hydronephrosis with renal and ureteral calculous obstruction (principal); R10.9 Unspecified abdominal pain; N40.0 Benign prostatic hyperplasia without lower urinary tract symptoms; I10 Essential (primary) hypertension; E11.9 Type 2 diabetes mellitus without complications; N17.9 Acute kidney failure, unspecified; Z87.442 Personal history of urinary calculi; Z90.79 Acquired absence of other genital organ(s)
CPT/HCPCS: 52356; 74018; 76000; 80048; 81003; 81015; 82365; 85025; 85027; 96361; 96365; 96375; 99284; C1894; C2617; G0378